=== PATIENT | male | born 1950 | race Caucasian/White ===

== ENCOUNTER → 2019-09-30 | Day surgery (SDC) | payer MEDICARE, OTHER ==
[2019-09-25 08:54] LABS: BASOPHILS # (AUTO) 0.1 (0.0-0.1); BASOPHILS % 1.4 % (0.0-1.0); EOSINOPHILS # (AUTO) 0.5 (0.0-0.4); EOSINOPHILS % 5.8 % (0.0-6.0); HEMATOCRIT 43.6 % (38.2-49.6); HEMOGLOBIN 14.7 g/dL (14.0-18.0); LYMPHOCYTES # (AUTO) 1.8 (1.0-3.2); LYMPHOCYTES % 23.8 % (18.0-39.1); MEAN CORPUSCULAR HEMOGLOBIN 28.2 pg (28-32); MEAN CORPUSCULAR HGB CONC 33.7 g/dL (31-35); MEAN CORPUSCULAR VOLUME 83.5 fL (81-99); MONOCYTES # (AUTO) 0.8 (0.2-0.8); MONOCYTES % 10.1 % (4.4-11.3); NEUTROPHILS # (AUTO) 4.5 (2.1-6.9); NEUTROPHILS % 58.5 % (38.7-80.0); PLATELET COUNT 251 x10e3/uL (140-360); RED BLOOD COUNT 5.22 x10e6/uL (4.3-5.7); RED CELL DISTRIBUTION WIDTH 13.1 % (11.7-14.4)
[~2019-09-30] MED LIST: ASPIRIN81 MG PO; CENTRUM SILVER1 EAC6 PO; FENOFIBRATE145 MG PO; GLUCAGON FOR INJ 1 MG VIAL ONE; HYOSCYAMINE 0.125 MG TAB ONE; LIDOCAINE HCL 2% LOCAL INJ 5 ML SDV VIAL INJ ONE; LISINOPRIL5 MG PO; MIDAZOLAM HCL 2 MG/2 ML VIAL ONE; NABUMETONE750 MG PO; PLAQUENIL200 MG PO; PROPOFOL IV EMULSION 10 MG/ML 20 ML VIAL ONE; Z.0.LIPITOR80 MG PO; Z.0.NORVASC10 MG PO
--- OUTSIDE RECORDS SUMMARY | 2019-09-30 06:03 | XMS REPORT ---
Author Author ROBERTO Martinez Organization eClinicalWorks Address Unknown Phone Unavailable Care Team Providers Care Material Lister Name Role Phone Oumar Martinez CP Unavailable Allergies, Adverse Reactions, Alerts Substance Reaction Event Type N.K.D.A. Info Not Available Non Drug Allergy Problems Problem Type Condition Code Onset Dates Condition Statu s Problem Rheumatoid arthritis of multiple sites without r heumatoid factor M06.09 Active Problem Erosive osteoarthritis of both hands M15.4 Active Assessment Need for prophylactic vaccination and in oculation against influenza Z23 Active Assessment Rheumatoid arthritis of multiple sites w ithout rheumatoid factor M06.09 Active Assessment Erosive osteoarthritis of both hands M15.4 Active Medications Medication Code System Code Instructions Start Date End Date Status Dosage Amlodipine Besylate [facility] 10796885068 10 MG Orally Once a day Active 1 tablet Centrum Silver [facility] 26130097401 - Orally once a day A ctive 1 tablet Plaquenil [facility] 17517242525 200 MG Orally BID Mar 21, 2018 Act gabriella 1 tablet with food or milk Lisinopril ND 85785804640 10 MG Orally Once a day A ctive 1 tablet Atorvastatin Calcium ND 85620575294 40 MG Orally Once a day Active 1 tablet Nabumetone [facility] 77631385460 750 MG Orally twice a day Active 1 tablet Fenofibrate [facility] 66773316219 160 MG Orally Once a day Active 1 tablet with food Vital Signs Date/Time: Apr 18, 2018 BMI 32.73 Index Weight 202.8 lbs Height 66 in Temperature 97.0 F Cardiac Monitoring Heart Rate 70 /min Blood Pressure Diastolic 78 mm Hg Blood Pressure Systolic 138 mm Hg Results No Known Results Immunizations Vaccine Administration Date Flu Vaccine Apr 18, 2018 Summary Purpose eClinicalWorks Submission
--- OUTSIDE RECORDS SUMMARY | 2019-09-30 06:03 | XMS REPORT ---
Author Author ROBERTO Ramesh Organization [employer] Address Unknown Phone Unavailable Care Team Providers Care Assistant Pressman Name Role Phone Doug Ramesh CP Unavailable Allergies No Known Allergies Problems Problem Type Condition Code Onset Dates Condition Statu s Problem Rheumatoid arthritis of multiple sites without r heumatoid factor M06.09 Active Problem Screening for osteoporosis Z13.820 A ctive Problem Erosive osteoarthritis of both hands M15.4 Active Medications No Known Medications Results No Known Results Summary Purpose eClinicalWorks Submission
--- OUTSIDE RECORDS SUMMARY | 2019-09-30 06:03 | XMS REPORT ---
Author Author ROBERTO Ramesh Organization [employer] Address Unknown Phone Unavailable Care Team Providers Care Sales Program Coordinator Name Role Phone Doug Ramesh CP Unavailable Allergies No Known Allergies Problems Problem Type Condition Code Onset Dates Condition Statu s Problem Rheumatoid arthritis of multiple sites without r heumatoid factor M06.09 Active Problem Screening for osteoporosis Z13.820 A ctive Problem Erosive osteoarthritis of both hands M15.4 Active Assessment Special screening for osteoporosis Z13.820 Active Medications Medication Code System Code Instructions Start Date End Date Status Dosage Nabumetone ND 61561928500 750 MG Orally twice a day Active 1 tablet Fenofibrate ND 63542024154 160 MG Orally Once a day Active 1 tablet with food Amlodipine Besylate ND 07227181994 10 MG Orally Once a day Active 1 tablet Atorvastatin Calcium ND 15271345109 40 MG Orally Once a day Active 1 tablet Plaquenil ND 84388095813 200 MG Orally BID Mar 21, 2018 Act gabriella 1 tablet with food or milk Centrum Silver ND 65876022894 - Orally once a day A ctive 1 tablet Lisinopril ND 24289472606 10 MG Orally Once a day A ctive 1 tablet Results No Known Results Summary Purpose eClinicalWorks Submission
--- OUTSIDE RECORDS SUMMARY | 2019-09-30 06:03 | XMS REPORT ---
Author Author ROBERTO Martinez Organization [employer] Address Unknown Phone Unavailable Care Team Providers Care Solution Maker Name Role Phone Oumar Martinez CP Unavailable Allergies, Adverse Reactions, Alerts Substance Reaction Event Type N.K.D.A. Info Not Available Non Drug Allergy Problems Problem Type Condition Code Onset Dates Condition Statu s Problem Rheumatoid arthritis of multiple sites without r heumatoid factor M06.09 Active Assessment Rheumatoid arthritis of multiple sites w ithout rheumatoid factor M06.09 Active Problem Erosive osteoarthritis of both hands M15.4 Active Assessment Erosive osteoarthritis of both hands M15.4 Active Medications Medication Code System Code Instructions Start Date End Date Status Dosage Diclofenac Sodium [facility] 55006493724 1 % Transdermal Four times a day Active 2g to affected area Plaquenil ND 59013818814 200 MG Orally BID October 17, 2017 Act gabriella 1 tablet with food or milk Amlodipine Besylate ND 81588861929 10 MG Orally Once a day Active 1 tablet Lisinopril ND 76657807458 10 MG Orally Once a day A ctive 1 tablet Atorvastatin Calcium ND 14749916997 40 MG Orally Once a day Active 1 tablet Fenofibrate ND 21564162279 160 MG Orally Once a day Active 1 tablet with food Centrum Silver ND 72810356157 - Orally once a day A ctive 1 tablet Nabumetone ND 11445441771 750 MG Orally twice a day Active 1 tablet Vital Signs Date/Time: December 16, 2017 BMI 32.81 Index Weight 203.3 lbs Height 66 in Temperature 97.0 F Cardiac Monitoring Heart Rate 66 /min Blood Pressure Diastolic 76 mm Hg Blood Pressure Systolic 118 mm Hg Results No Known Results Summary Purpose eClinicalWorks Submission
--- OUTSIDE RECORDS SUMMARY | 2019-09-30 06:03 | XMS REPORT ---
Author Author ROBERTO Martinez [facility] eClinicalWorks Address Unknown Phone Unavailable Care Team Providers Care Technology Sales Specialist Name Role Phone Oumar Martinez CP Unavailable Allergies No Known Allergies Problems Problem Type Condition Code Onset Dates Condition Statu s Problem Rheumatoid arthritis of multiple sites without r heumatoid factor M06.09 Active Problem Erosive osteoarthritis of both hands M15.4 Active Medications Medication Code System Code Instructions Start Date End Date Status Dosage Plaquenil [facility] 64242088683 200 MG Orally BID October 17, 2017 September 07, 2 019 Active 1 tablet with food or milk Results No Known Results Summary Purpose eClinicalWorks Submission
--- OUTSIDE RECORDS SUMMARY | 2019-09-30 06:03 | XMS REPORT ---
Author Author ROBERTO Martinez Organization [employer] Address Unknown Phone Unavailable Care Team Providers Care Hose Finisher Name Role Phone Oumar Martinez CP Unavailable [...] osteoarthritis of both hands M15.4 Active Assessment Rheumatoid arthritis of multiple sites w ithout rheumatoid factor M06.09 Active Medications Medication Code System Code Instructions Start Date End Date Status Dosage Centrum Silver ND 96331613018 - Orally once a day A ctive 1 tablet Amlodipine Besylate ND 62047329222 10 MG Orally Once a day Active 1 tablet Plaquenil ND 05709244051 200 MG Orally BID Mar 21, 2018 Act gabriella 1 tablet with food or milk Nabumetone ND 86120317311 750 MG Orally twice a day Active 1 tablet Atorvastatin Calcium ND 57081560441 40 MG Orally Once a day Active 1 tablet Lisinopril ND 87736829898 10 MG Orally Once a day A ctive 1 tablet Fenofibrate ND 96112246057 160 MG Orally Once a day Active 1 tablet with food Vital Signs Date/Time: October 14, 2018 BMI 33 Index Weight 201.3 lbs Height 65 in Temperature 97.8 F Cardiac Monitoring Heart Rate 60 /min Blood Pressure Diastolic 80 mm Hg Blood Pressure Systolic 122 mm Hg Results No Known Results Summary Purpose eClinicalWorks Submission
--- OUTSIDE RECORDS SUMMARY | 2019-09-30 06:03 | XMS REPORT ---
Author ROBERTO Mcleod Organization e[employer]Works Address Unknown Phone Unavailable Care Team Providers Care Syrup Blender Name Role Phone Doug Ramesh CP Unavailable Allergies No Known Allergies Problems Problem Type Condition Code Onset Dates Condition Statu s Problem Rheumatoid arthritis of multiple sites without r heumatoid factor M06.09 Active Problem Erosive osteoarthritis of both hands M15.4 Active Medications Medication Code System Code Instructions Start Date End Date Status Dosage Plaquenil [facility] 06907992566 200 MG Orally BID Mar 21, 2018 Act gabriella 1 tablet with food or milk Results No Known Results Summary Purpose eClinicalWorks Submission
--- OUTSIDE RECORDS SUMMARY | 2019-09-30 06:03 | XMS REPORT | Continuity of Care Document ---
Author Author Clifford Booker [employer] ROBERTO Nolen Testin Address Unknown Phone Unavailable Care Team Providers Care Emulsion Operator Name Role Phone [employer] Unavailable Un available Problems Problem Status Onset Date Classification Date Reported Comments Source Rheumatoid arthritis of multiple sites w ithout rheumatoid factor Active Prob ashley 04/26/2019 Galen Ramesh Screening for osteoporosis Act gabriella Problem 12/2018 Galen Ramesh Erosive osteoarthritis of both hands Active Problem 12/2018 Galen Ramesh Need for prophylactic vaccination and in oculation against influenza Active Diag nosis 04/26/2019 Galen Ramesh Special screening for osteoporosis Active Diagnosis 0 06/11/2018 Galen Ramesh Encounter for drug therapy Act gabriella Diagnosis 1 06/27/2018 Galen Ramesh Medications Medication Details Route Status Patient Instructions Ordering Provider Order Date Source Plaquenil 1 tablet with food o r milk Orally Active 200 MG Orally BID [place] 03/21/2018 Galen Ramesh Plaquenil 1 tablet with food o r milk Orally Active 200 MG Orally BID Michelle 10/17/2017 Galen Ramesh Diclofenac Sodium 2g to affect ed area Transdermal Active 1 % Transdermal Four times a day Galen Ramesh Nabumetone 1 tablet Orally Active 750 MG Orally twice a d ay Derian Ramesh Atorvastatin Calcium 1 tablet Orally Active 40 MG Orally Once a day Derian Ramesh Amlodipine Besylate 1 tablet Orally Active 10 MG Orally Once a day Derian Ramesh Fenofibrate 1 tablet with food Orally Active 160 MG Orally Once a day Derian Ramesh Centrum Silver 1 tablet Orally Active - Orally once a day Derian Ramesh Lisinopril 1 tablet Orally Active 10 MG Orally Once a day Derian Ramesh Allergies, Adverse Reactions, Alerts Substance Category Reaction Severity Reaction type Status Date Reported Comments Source N.K.D.A. Adverse Reaction Info Not Available Adverse Reaction 04/20/2019 Galen Ramesh Immunizations Immunization Date Given Site Status Last Updated Comments Source FLU VACCINE 04/20/20 19 completed Galen Ramesh Flu Vaccine 04/18/2018 completed Galen Ramesh Results No Data Provided for This Section Pathology Reports No Data Provided for This Section Diagnostic Reports No Data Provided for This Section Consultation Notes No Data Provided for This Section Discharge Summaries No Data Provided for This Section History and Physicals No Data Provided for This Section Vital Signs Vital Sign Value Date Comments Source Weight 204.7 04/20/2019 Galen Ramesh Height 65 1 06/21/2018 Galen Ramesh Temperature Oral (F) 97.3 F 04/20/2019 Galen Ramesh Heart Rate 60 04/20/2019 Galen Ramesh Diastolic (mm Hg) 72 04/20/2019 Galen Ramesh Systolic (mm Hg) 110 04/20/2019 Galen Ramesh Weight 201.3 10/14/2018 Galen Ramesh Height 65 0 10/14/2018 Galen Ramesh Temperature Oral (F) 97.8 F 10/14/2018 Galen Ramesh Heart Rate 60 10/14/2018 Galen Ramesh Diastolic (mm Hg) 80 10/14/2018 Galen Ramesh Systolic (mm Hg) 122 10/14/2018 Galen Ramesh Weight 202.8 04/18/2018 Galen Ramesh Height 66 1 06/18/2017 Galen Ramesh Temperature Oral (F) 97.0 F 04/18/2018 Galen Ramesh Heart Rate 70 04/18/2018 Galen Ramesh Diastolic (mm Hg) 78 04/18/2018 Galen Ramesh Systolic (mm Hg) 138 04/18/2018 Galen Ramesh Weight 203.3 12/16/2017 Galen Ramesh Height 66 0 12/16/2017 Galen Ramesh Temperature Oral (F) 97.0 F 12/16/2017 Galen Ramesh Heart Rate 66 12/16/2017 Galen Ramesh Diastolic (mm Hg) 76 12/16/2017 Galen Ramesh Systolic (mm Hg) 118 12/16/2017 Galen Ramesh Weight 204 10/17/2017 Galen Ramesh Height 66 0 10/17/2017 Galen Ramesh Temperature Oral (F) 97.3 F 10/17/2017 Galen Ramesh Heart Rate 64 10/17/2017 Galen Ramesh Diastolic (mm Hg) 82 10/17/2017 Galen Ramesh Systolic (mm Hg) 120 10/17/2017 Galen Ramesh Encounters No Data Provided for This Section Procedures No Data Provided for This Section Assessment and Plan No Data Provided for This Section Plan of Care No Data Provided for This Section Social History No Data Provided for This Section Family History No Data Provided for This Section Advance Directives No Data Provided for This Section Functional Status No Data Provided for This Section
--- OUTSIDE RECORDS SUMMARY | 2019-09-30 06:03 | XMS REPORT ---
Author Author ROBERTO Menard [facility] eClinicalWorks Address Unknown Phone Unavailable Care Team Providers Care Orthophoto Tech/[place]man Name Role Phone Karina Menard Unavailable Allergies, Adverse Reactions, Alerts Substance Reaction Event Type N.K.D.A. Info Not Available Non Drug Allergy Problems Problem Type Condition Code Onset Dates Condition Statu s Assessment Encounter for drug therapy Z79.899 A ctive Problem Rheumatoid arthritis of multiple sites without r heumatoid factor M06.09 Active Problem Screening for osteoporosis Z13.820 A ctive Problem Erosive osteoarthritis of both hands M15.4 Active Assessment Need for prophylactic vaccination and in oculation against influenza Z23 Active Assessment Erosive osteoarthritis of both hands M15.4 Active Assessment Rheumatoid arthritis of multiple sites w ithout rheumatoid factor M06.09 Active Medications Medication Code System Code Instructions Start Date End Date Status Dosage Nabumetone ND 15840169964 750 MG Orally twice a day Active 1 tablet Atorvastatin Calcium ND 69916102177 40 MG Orally Once a day Active 1 tablet Plaquenil [facility]NOTE 3] 72635443054 200 MG Orally BID Mar 21, 2018 Act gabriella 1 tablet with food or milk Lisinopril ND 99132744364 10 MG Orally Once a day A ctive 1 tablet Centrum Silver ND 13833802859 - Orally once a day A ctive 1 tablet Amlodipine Besylate ND 38739585908 10 MG Orally Once a day Active 1 tablet Fenofibrate ND 20439164126 160 MG Orally Once a day Active 1 tablet with food Vital Signs Date/Time: Apr 20, 2019 BMI 34.06 Index Weight 204.7 lbs Height 65 in Temperature 97.3 F Cardiac Monitoring Heart Rate 60 /min Blood Pressure Diastolic 72 mm Hg Blood Pressure Systolic 110 mm Hg Results Name Result Date Reference Range Unit Abnormali ty Flag CBC W/AUTO DIFF ----MONOCYTES 9.1 33280541 4.0-13.0 % ----LYMPHOCYTES 20.5 27943893 19.0-48.0 % ----HEMOGLOBIN 16.5 22257378 13.0-17.0 G/DL ----HEMATOCRIT 48.9 91007972 37.0-49.0 % ----MCV 83.6 89678336 80.0-100.0 fL ----MCH 28.2 53607878 27.0-34.0 PG ----MCHC 33.7 73932901 32.0-35.5 G/DL ----PLATELET COUNT 251 20039456 130-400 K/UL ----RDW 13.1 33974220 11.0-15.0 % ----BASOPHILS 1.2 64054651 0.0-2.0 % ----WBC 7.8 72091098 4.0-11.0 K/UL ----NEUTROPHILS 64.2 53081927 40.0-74.0 % ----RBC 5.85 11221472 4.10-5.70 M/UL H ----EOSINOPHILS 5.0 08208236 0.0-7.0 % C-REACTIVE PROTEIN ----C-REACTIVE PROTEIN <0.1 45317261 <0.5 MG/DL COMPREHENSIVE METABOLIC PANEL ----CALC A/G RATIO 1.7 20736864 1.0-2.6 RATIO ----CALC GLOBULIN 2.5 24623207 1.9-3.7 G/DL ----ALKALINE PHOSPHATASE 108 41636423 40-125 U/L ----BILIRUBIN, TOTAL 0.4 07860564 <=1.2 MG/DL ----CHLORIDE 105 29359006 95-107 MEQ/L ----ALT 48 98470412 5-50 U/L ----POTASSIUM 4.0 76857422 3.5-5.4 MEQ/L ----AST 31 16539960 9-50 U/L ----SODIUM 144 12613326 133-146 MEQ/L ----CALC BUN/CREAT 14 07886206 6-28 RATIO ---- eGFR NON- AMER. 80 31697090 >60 ML/MIN/1 .73 ----CALCIUM 9.5 78005315 8.5-10.5 MG/DL ----CARBON DIOXIDE 24 68650910 19-31 MEQ/L ----ALBUMIN 4.3 20190420 3.5-5.2 G/DL ----PROTEIN, TOTAL 6.8 20190420 6.1-8.3 G/DL ----GLUCOSE 189 20190420 70-99 MG/DL H ----BUN 13 20190420 8-23 MG/DL ----CREATININE 0.96 20190420 0.80-1.40 MG/DL ---- eGFR AMER. 92 20190420 >60 ML/MIN/1.73 SEDIMENTATION RATE ----SEDIMENTATION RATE 5 20190420 0-15 MM/HOUR Immunizations Vaccine Administration Date FLU VACCINE Apr 20, 2019 Summary Purpose eClinicalWorks Submission
--- OUTSIDE RECORDS SUMMARY | 2019-09-30 06:03 | XMS REPORT ---
Author Author ROBERTO Brandon [facility] eClinicalWorks Address Unknown Phone Unavailable Care Team Providers Care Online Producer Name Role Phone Mikala Brandon CP Unavailable Allergies, Adverse Reactions, Alerts Substance Reaction Event Type N.K.D.A. Info Not Available Non Drug Allergy Problems Problem Type Condition Code Onset Dates Condition Statu s Assessment Rheumatoid arthritis of multiple sites w ithout rheumatoid factor M06.09 Active Problem Rheumatoid arthritis of multiple sites without r heumatoid factor M06.09 Active Medications Medication Code System Code Instructions Start Date End Date Status Dosage Diclofenac Sodium [facility] 09167532642 1 % Transdermal Four times a day Active 2g to affected area Nabumetone ND 93145223721 750 MG Orally twice a day Active 1 tablet Atorvastatin Calcium ND 33674718538 40 MG Orally Once a day Active 1 tablet Amlodipine Besylate ND 68705196563 10 MG Orally Once a day Active 1 tablet Fenofibrate ND 93699299284 160 MG Orally Once a day Active 1 tablet with food Centrum Silver ND 06232868145 - Orally once a day A ctive [address] [facility] 89607607520 200 MG Orally BID October 17, 2017 Aug , 201 8 Active 1 tablet with food or milk Lisinopril ND 84580169555 10 MG Orally Once a day A ctive 1 tablet Vital Signs Date/Time: October 17, 2017 BMI 32.92 Index Weight 204 lbs Height 66 in Temperature 97.3 F Cardiac Monitoring Heart Rate 64 /min Blood Pressure Diastolic 82 mm Hg Blood Pressure Systolic 120 mm Hg Results No Known Results Summary Purpose eClinicalWorks Submission
--- OUTSIDE RECORDS SUMMARY | 2019-09-30 06:03 | XMS REPORT ---
Author Author ROBERTO Ramesh Organization eClinicalWorks Address Unknown Phone Unavailable Care Team Providers Care Dobie Man Name Role Phone Doug Ramesh CP Unavailable [...] Start Date End Date Status Dosage Plaquenil [facility] 42166992466 200 MG Orally BID Mar 21, 2018 Act gabriella 1 tablet with food or milk Results No Known Results Summary Purpose eClinicalWorks Submission
--- NOTE | 2019-09-30 07:16 | NUR ---
SPIRITUAL CARE - Pre-Surgery Assessment: Pt in bed. Pt reported supportive attention from family and friends. Intervention: I provided pastoral presence, hospitality, and sympathetic listening. I acquainted pt with availability of aged or disabled carer while hospitalized. Outcome: Pt expressed appreciation for visit. No need for follow up indicated at this time. ZAINAB Sotolain Spiritual Care Department O: [phone]
[2019-09-30 09:15] VITALS: BP 146/89
--- NOTE | 2019-09-30 09:32 | Operative Report ---
DATE OF PROCEDURE: 09/30/2019 SURGEON: Osvaldo Licea MD PROCEDURE: Colonoscopy with polypectomy. INDICATIONS FOR COLONOSCOPY: Surveillance colonoscopy, personal history of colon polyps. MEDICATIONS: The patient was done under MAC, please see anesthesiologist's note. PROCEDURE IN DETAIL: With the patient in left lateral decubitus position, a flexible fiberoptic Olympus colonoscope was inserted into the rectum with ease and advanced all the way to the cecum. Mucosa overlying the cecum appeared to be within normal limits. The scope was then withdrawn slowly and one polyp was removed per hot snare polypectomy from the ascending colon and site was hemoclipped x1. One polyp was cold biopsied from the transverse colon. Three polyps were hot snared from the descending colon. The sigmoid appeared to be within normal limits. One polyp was removed per hot biopsy forceps from the proximal rectum. The scope was then retroflexed into the distal rectum, moderate-sized internal hemorrhoids were noted, none of which was actively bleeding. The scope was then straightened out, it was subsequently withdrawn. The patient tolerated the procedure well. IMPRESSION: 1. Ascending colon polyp hot snared and hemoclipped x1. 2. Transverse colon polyp removed per cold biopsy forceps. 3. Descending colon polyps x3, hot snared. 4. Rectal polyp, hot biopsied. 5. Internal hemorrhoids, none actively bleeding. PLAN: Follow up histology. Initiate high-fiber, low-fat diet. Initiate high-fiber supplement. The patient might benefit from a followup colonoscopy in 3 years. Osvaldo Licea [place] [facility] [place][id number] cc: Warner Zambrano DO
== END | disposition home or self-care (01) ==
LOC: ENDO 05:51
PROVIDERS: ATTEND Internal Medicine Gastroenterology
DX: K59.00 Constipation, unspecified (principal); D12.4 Benign neoplasm of descending colon; K62.1 Rectal polyp; K64.8 Other hemorrhoids; M06.9 Rheumatoid arthritis, unspecified; I10 Essential (primary) hypertension; R00.1 Bradycardia, unspecified; E78.00 Pure hypercholesterolemia, unspecified; Z01.810 Encounter for preprocedural cardiovascular examination; Z01.812 Encounter for preprocedural laboratory examination; Z11.59 Encounter for screening for other viral diseases; Z68.32 Body mass index [BMI] 32.0-32.9, adult; Z80.0 Family history of malignant neoplasm of digestive organs
CPT/HCPCS: 36415; 45380; 45384; 45385; 85025; 87635; 88305; 93005; J1610; J2001; J2250; J2704; 45378

== ENCOUNTER → 2022-08-22 | Day surgery (SDC) | payer MEDICARE, OTHER ==
[2022-08-16 09:04] LABS: BASOPHILS # (AUTO) 0.1 (0.0-0.1); BASOPHILS % 1.3 % (0.0-1.0); EOSINOPHILS # (AUTO) 0.3 (0.0-0.4); EOSINOPHILS % 5.1 % (0.0-6.0); HEMATOCRIT 43.6 % (38.2-49.6); HEMOGLOBIN 14.4 g/dL (14.0-18.0); LYMPHOCYTES # (AUTO) 1.3 (1.0-3.2); MEAN CORPUSCULAR HEMOGLOBIN 28.7 pg (28-32); MONOCYTES # (AUTO) 0.5 (0.2-0.8); MONOCYTES % 9.7 % (4.4-11.3); NEUTROPHILS # (AUTO) 3.3 (2.1-6.9); NEUTROPHILS % 59.7 % (38.7-80.0); PLATELET COUNT 189 x10e3/uL (140-360); RED BLOOD COUNT 5.01 x10e6/uL (4.3-5.7); RED CELL DISTRIBUTION WIDTH 13.3 % (11.7-14.4)
[~2022-08-22] MED LIST changes: +EPHEDRINE SULFATE INJ 50 MG/ML VIAL ONE; -GLUCAGON FOR INJ 1 MG VIAL ONE; -HYOSCYAMINE 0.125 MG TAB ONE; +HYOSCYAMINE SULFATE 0.5 MG/ML INJ ONE; +LACTATED RINGER'S 1,000 ML ONE; -MIDAZOLAM HCL 2 MG/2 ML VIAL ONE; +PHENYLEPHRINE HCL 1% 10 MG/ML VIAL ONE
[2022-08-22 08:45] VITALS: BP 111/71
== END | disposition home or self-care (01) ==
LOC: OR 07:35
PROVIDERS: ATTEND Internal Medicine Gastroenterology
DX: Z09 Encounter for follow-up examination after completed treatment for conditions other than malignant neoplasm (principal); D12.0 Benign neoplasm of cecum; D12.2 Benign neoplasm of ascending colon; D12.3 Benign neoplasm of transverse colon; D12.4 Benign neoplasm of descending colon; K64.8 Other hemorrhoids; E78.5 Hyperlipidemia, unspecified; I10 Essential (primary) hypertension; Z01.810 Encounter for preprocedural cardiovascular examination; Z01.812 Encounter for preprocedural laboratory examination; Z79.899 Other long term (current) drug therapy
CPT/HCPCS: 36415; 45380; 45385; 85025; 88305; 93005; J1980; J2001; J2370; J2704; J7121; 45378